=== PATIENT | male | born 1985 | race Two or more races ===

== ENCOUNTER 2017-05-03 15:22 | Emergency (ER) | payer OTHER ==
[~2017-05-03] VITALS: Ht 190.5 cm; Wt 83.9 kg
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
[2017-05-03] MEDS ORDERED: IBUPROFEN 600 MG TABLET PO ONE ×2 (16:30→16:33)
[2017-05-03 17:56] VITALS: BP 130/78
--- NOTE | 2017-05-03 17:57 | NUR ---
Patient discharged IN CUSTODY in stable condition. Written and verbal after care instructions given. Patient verbalizes understanding of instruction.
== END 2017-05-03 17:58 ==
LOC: ER 15:23
DX: S60.221A Contusion of right hand, initial encounter (principal); S00.83XA Contusion of other part of head, initial encounter; J32.9 Chronic sinusitis, unspecified; Y04.0XXA Assault by unarmed brawl or fight, initial encounter; Y93.89 Activity, other specified; Y92.89 Other specified places as the place of occurrence of the external cause; Y99.8 Other external cause status
CPT/HCPCS: 70486-TC; 73130-TC; A4606; Z7610